=== PATIENT | male | born 1960 | race Caucasian/White ===

== ENCOUNTER 2016-12-15 08:26 | Day surgery (SDC) | payer BC ==
[~2016-12-15] VITALS: Ht 165.1 cm; Wt 74.8 kg
[~2016-12-15 08:26] MED LIST: BACLOFEN10 MG PO; CARVEDILOL3.125 MG PO; LISINOPRIL2.5 MG PO; OXAYDO5 MG PO; PRAVASTATIN SOD40 MG PO; TYLENOL EXTRA500 MG PO
[2016-12-15 08:59] VITALS: BP 136/84
[2016-12-15 09:00] VITALS: BP 136/84
[2016-12-15 10:03] LABS: HEMATOCRIT 43.2 % (38.0-50.0); MCH 33.2 PG (29.0-34.0); MCV 97.5 FL (86-99); MEAN PLAT.VOLUME 9.6 uM^3 (9.0-12.4); PLATELET COUNT 260 K/uL (156-360); RBC DIS.WIDTH-CV 11.9 % (11.8-14.6); RBC DIS.WIDTH-SD 43.6 % (39-53); RED BLOOD COUNT 4.43 M/uL (4.00-5.50)
[2016-12-15 10:23] LABS: ANION GAP 10 MEQ/L (2-14); CHLORIDE 102 MEQ/L (99-109); GFR ESTIMATE (CALCULATED) > 59 mL/min/; GLUCOSE 96 mg/dL (70-99); POTASSIUM 4.5 MEQ/L (3.7-5.4); SAMPLE HEMOLYSIS CHECK 0; SAMPLE ICTERIC CHECK 0; SAMPLE LIPEMIA CHECK 0; SODIUM 138 MEQ/L (136-147); UREA NITROGEN (BUN) 6 mg/dL (9-23)
[2016-12-15 11:26] VITALS: BP 127/79
[2016-12-15 14:02] VITALS: BP 132/69
[2016-12-15 16:27] VITALS: BP 158/86
== END 2016-12-15 16:52 | disposition home or self-care (01) ==
LOC: SDC 08:26 → 2EAST 08:27 → SDC 10:34 → 2EAST 16:52
PROVIDERS: Neurological Surgery
PROC: 0SB20ZZ Excision of Lumbar Vertebral Disc, Open Approach (ICD-10-PCS; principal; 2016-12-15)
DX: M51.16 Intervertebral disc disorders with radiculopathy, lumbar region (principal); M48.06 Spinal stenosis, lumbar region; M47.26 Other spondylosis with radiculopathy, lumbar region; I25.10 Atherosclerotic heart disease of native coronary artery without angina pectoris; Z98.61 Coronary angioplasty status; I25.2 Old myocardial infarction; E78.5 Hyperlipidemia, unspecified; I10 Essential (primary) hypertension; F17.200 Nicotine dependence, unspecified, uncomplicated; Z83.3 Family history of diabetes mellitus; Z82.49 Family history of ischemic heart disease and other diseases of the circulatory system; Z82.3 Family history of stroke; Z82.61 Family history of arthritis; Z79.82 Long term (current) use of aspirin
CPT/HCPCS: 72020; 76000; 80048; 85027; G0378; J0330; J0690; J1100; J1170; J2405; J3010; J3370